=== PATIENT | female | born 1950 | race Caucasian/White ===

== ENCOUNTER 2024-01-07 13:25 | Emergency (ER) | payer MEDICARE ==
[2024-01-07] MEDS: Ondansetron 4 MG/2 ML SDV IVPUSH ONE (13:58)
[2024-01-07] MEDS: Ketorolac 30 MG/ML SDV IVPUSH ONE (13:58)
[2024-01-07] MEDS ORDERED: Naloxone 0.4 MG/ML SDV IVPUSH PRN (15:08)
[2024-01-07] MEDS: HYDROmorphone 1 MG/ML Syringe IVPUSH ONE (15:22)
[2024-01-07] MEDS ORDERED: Sodium Chloride 0.9% 10 ML Syringe FLUSH PRN (15:24)
== END 2024-01-07 16:05 ==
LOC: JD.ED 13:25
DX: S72.22XA Displaced subtrochanteric fracture of left femur, initial encounter for closed fracture (principal); S72.142A Displaced intertrochanteric fracture of left femur, initial encounter for closed fracture; I10 Essential (primary) hypertension; J44.9 Chronic obstructive pulmonary disease, unspecified; E03.9 Hypothyroidism, unspecified; Z88.5 Allergy status to narcotic agent; Z91.040 Latex allergy status; Z91.048 Other nonmedicinal substance allergy status; Z79.899 Other long term (current) drug therapy; Z86.19 Personal history of other infectious and parasitic diseases; W01.0XXA Fall on same level from slipping, tripping and stumbling without subsequent striking against object, initial encounter
CPT/HCPCS: 73502; 96374; 96375; 99285; J1170; J1885; J2405

== ENCOUNTER 2024-12-12 10:59 | Emergency (ER) | payer MEDICARE ==
[2024-12-12 13:10] LABS: BASOPHILS PERCENT AUTO 0.6 % (0.0-1.0); EOSINOPHILS ABSOLUTE AUTO 0.1 K/mm3 (0.0-0.4); EOSINOPHILS PERCENT AUTO 2.4 % (0.0-6.0); HEMATOCRIT 38.6 % (37.0-47.0); HEMOGLOBIN 12.4 gm/dl (12.0-16.0); IMMATURE GRAN ABSOLUTE AUTO 0.02 K/mm3 (0.00-0.05); IMMATURE GRAN PERCENT AUTO 0.4 % (0.0-0.4); LYMPHOCYTES ABSOLUTE AUTO 2.1 K/mm3 (1.0-4.8); LYMPHOCYTES PERCENT AUTO 38.8 % (24.0-44.0); MEAN CORPUSCULAR HEMOGLOBIN 29.7 pg (28.0-32.0); MEAN CORPUSCULAR HGB CONC 32.1 g/dl (32.0-36.0); MEAN PLATELET VOLUME 8.9 fl (9.4-12.3); MONOCYTES ABSOLUTE AUTO 0.9 K/mm3 (0.0-0.8); MONOCYTES PERCENT AUTO 16.7 % (0.0-8.0); NEUTROPHILS ABSOLUTE AUTO 2.2 K/mm3 (1.8-7.7); NEUTROPHILS PERCENT AUTO 41.1 % (41.0-71.0); PLATELET COUNT,PLT 278 K/mm3 (150-400); RED BLOOD CELL COUNT 4.17 M/mm3 (4.10-5.30); WHITE BLOOD CELL COUNT,WBC 5.44 K/mm3 (3.9-11.3)
[2024-12-12 13:14] LABS: MEAN CORPUSCULAR VOLUME 92.6 fl (83.0-99.0)
[2024-12-12 13:32] LABS: ALBUMIN 3.3 g/dl (3.4-5.0); ANION GAP 12.6 (5-15); BILIRUBIN TOTAL 0.2 mg/dL (0.2-1.0); C-REACTIVE PROTEIN 1.68 mg/dL (<0.30); EST CRCL DRUG DOSING (CG) 40.22 mL/min; POTASSIUM,K 4.6 mEq/L (3.5-5.1); PROTEIN TOTAL,TP 6.7 g/dl (6.4-8.2)
[2024-12-12] MEDS: Ondansetron 4 MG/2 ML SDV IVPUSH ONE (14:11)
[2024-12-12] MEDS: Famotidine 20 MG/2 ML SDV IVPUSH ONE (14:17)
[2024-12-12] MEDS: Iopamidol 612 MG/ML 100 ML Bottle IVPUSH ONE (14:28)
[2024-12-12] MEDS: Sodium Chloride 0.9% 10 ML Syringe FLUSH PRN (14:28)
[2024-12-12 15:11] LABS: APPEARANCE,URINE CLEAR (Clear); BILIRUBIN,URINE NEGATIVE (Negative); COLOR,URINE YELLOW (Yellow); GLUCOSE,URINE NEGATIVE (Negative); KETONES,URINE NEGATIVE (Negative); LEUKOCYTE ESTERASE,URINE NEGATIVE (Negative); NITRITE,URINE NEGATIVE (Negative); OCCULT BLOOD,URINE NEGATIVE (Negative); PROTEIN,URINE NEGATIVE (Negative); UROBILINOGEN,URINE 0.2 (0.2-1.0)
== END 2024-12-12 16:07 | disposition home or self-care (01) ==
LOC: JD.ED 10:59
DX: K59.00 Constipation, unspecified (principal); I10 Essential (primary) hypertension; E03.9 Hypothyroidism, unspecified; J44.9 Chronic obstructive pulmonary disease, unspecified; Z91.040 Latex allergy status; Z91.048 Other nonmedicinal substance allergy status; Z79.899 Other long term (current) drug therapy; Z86.16 Personal history of COVID-19; Z79.890 Hormone replacement therapy; Z88.8 Allergy status to other drugs, medicaments and biological substances
CPT/HCPCS: 36415; 74177; 80053; 81003; 83690; 85025; 86140; 96374; 96375; 99284; J2405; Q9967; 99283